=== PATIENT | female | born 1950 | race Caucasian/White ===

== ENCOUNTER 2023-09-20 07:15 | Day surgery (SDC) | payer MEDICARE, OTHER ==
[~2023-09-20 07:15] MED LIST: Brimonidine 0.2% Ophth Soln 5 ML Bottle EYELF SCH; Cefuroxime 10 MG/ML SYRINGE EYELF SCH; Lidocaine 1% PF 2 ML SDV INJECT SCH; Phenylephrine 2.5% Ophth Soln 2 ML Bot EYELF SCH; Pilocarpine 4% Ophth Soln 15 ML Bot EYELF SCH; Polymyxin B/Trimethoprim 10 ML Bottle EYELF SCH; Tetracaine HCl/PF 0.5% 4 ML Bottle EYEBOTH SCH; Tropicamide 1% Ophth Soln 15 ML Bottle EYELF SCH
[2023-09-20] MEDS: Ofloxacin 0.3% Ophth Soln 5 ML Bottle EYELF SCH ×3 (07:40→09:32)
[2023-09-20] MEDS: Brimonidine 0.2% Ophth Soln 5 ML Bottle EYELF SCH ×3 (07:45→09:32)
[2023-09-20] MEDS: Phenylephrine 2.5% Ophth Soln 2 ML Bot EYELF SCH ×5 (07:50→09:09)
[2023-09-20] MEDS: Tropicamide 1% Ophth Soln 3 ML Bottle EYELF SCH ×4 (07:55→08:43)
[2023-09-20] MEDS: Tetracaine HCl/PF 0.5% 4 ML Bottle EYEBOTH SCH ×4 (09:00→09:17)
== END 2023-09-20 09:44 | disposition home or self-care (01) ==
LOC: JD.SDS 07:15
PROVIDERS: ATTEND Ophthalmology
DX: H25.812 Combined forms of age-related cataract, left eye (principal); H16.103 Unspecified superficial keratitis, bilateral; H40.003 Preglaucoma, unspecified, bilateral; H18.413 Arcus senilis, bilateral; E11.9 Type 2 diabetes mellitus without complications; I10 Essential (primary) hypertension; E78.2 Mixed hyperlipidemia; Z79.899 Other long term (current) drug therapy; Z88.0 Allergy status to penicillin; Z88.6 Allergy status to analgesic agent; Z88.2 Allergy status to sulfonamides
CPT/HCPCS: A9270-GY; J3490

== ENCOUNTER 2024-07-18 12:42 | Emergency (ER) | payer MEDICARE, OTHER ==
[2024-07-18] MEDS: Acetaminophen 325 MG Tab PO ONE (14:03)
[2024-07-18] MEDS: Ondansetron 4 MG Tab.DIS PO ONE (14:03)
== END 2024-07-18 14:25 | disposition home or self-care (01) ==
LOC: JD.ED 12:42
DX: S09.90XA Unspecified injury of head, initial encounter (principal); S00.03XA Contusion of scalp, initial encounter; S13.9XXA Sprain of joints and ligaments of unspecified parts of neck, initial encounter; M47.892 Other spondylosis, cervical region; Z88.0 Allergy status to penicillin; Z88.2 Allergy status to sulfonamides; Z91.041 Radiographic dye allergy status; Z88.8 Allergy status to other drugs, medicaments and biological substances; W13.3XXA Fall through floor, initial encounter
CPT/HCPCS: 70450; 72125; 99284; A9270